=== PATIENT | female | born 1995 | race Caucasian/White ===

== ENCOUNTER 2017-05-09 22:27 | Emergency (ER) | payer SELFPAY ==
[~2017-05-09] VITALS: Ht 157.5 cm; Wt 134.3 kg
[2017-05-10] MEDS ORDERED: TRIM/SULFAMETH 160/800 (SEPTRA DS) TAB PO ONE (00:15)
--- NOTE | 2017-05-10 00:33 | ED General ---
General Chief Complaint: Skin/Wound Problems Stated Complaint: ARM WOUND Nursing Triage Note: pt reports warm, red, tender area to left upper arm x 2 days. Nursing Sepsis Screen: No Definite Risk (JIMI SANABRIA MEDICAL STUDENT) History of Present Illness Time Seen by Provider: 00:30 Initial Comments Pt is a 21 yo female with PMH of MRSA who presents to the ED via PV c/o an abscess on the inside of her L upper arm that started ~ 3 days ago. Pt states she has just used some warm compresses and has been "squeezing" it a few times a day. Hasn't taken any medication for pain. Pt has a hx of MRSA abscesses and states that she just moved here to [place] a few months ago and has been getting more of these since moving here. Denies any fevers, chills, or any other associated sx. (JIMI SANABRIA MEDICAL STUDENT) Allergies and Home Medications Allergies Coded Allergies: No Known Drug Allergies (Unverified , 05/09/17) Home Medications Sulfamethoxazole/Trimethoprim 1 Each Tablet, 1 EACH PO BID, #14 Prescribed by: CARRIE ANGELES on 05/10/17 0045 Constitutional: no symptoms reported, No chills, No diaphoresis EENTM: no symptoms reported, No ear pain, No mouth pain, No throat pain Respiratory: no symptoms reported, No cough, No dyspnea on exertion Cardiovascular: no symptoms reported, No chest pain, No palpitations Gastrointestinal: no symptoms reported, No abdominal pain, No constipation, No diarrhea Skin: change in color (redness), other (abscess on L arm) (JIMI SANABRIA MEDICAL STUDENT) All Other Systems Reviewed Negative Unless Noted: Yes (Negative excepted noted.) (JIMI SANABRIA MEDICAL STUDENT) Past Pbudwhu-Nluuqw-Yqogfa Hx Patient Social History Alcohol Use: Denies Use Recreational Drug Use: No Smoking Status: Never a Smoker Recent Foreign Travel: No Contact w/Someone Who Travel: No Recent Infectious Disease Expo: No Recent Hopitalizations: No Physical Abuse: No Sexual Abuse: No Mistreated: No Fear: No (JIMI SANABRIA MEDICAL STUDENT) Seasonal Allergies Seasonal Allergies: No (JIMI SANABRIA STUDENT) Surgeries History of Surgeries: Yes Surgeries: Adenoidectomy, Tonsillectomy (JIMI SANABRIA MEDICAL STUDENT) Respiratory History of Respiratory Disorde: Yes Respiratory Disorders: Asthma (JIMI SANABRIA MEDICAL STUDENT) Cardiovascular History of Cardiac Disorders: Yes Cardiac Disorders: Hypertension (JIMI SANABRIA MEDICAL STUDENT) Reproductive System Last Menstrual Period: Apr 19, 2017 (JIMI SANABRIA MEDICAL STUDENT) Psychosocial Suicide Risk Score: 0 (JIMI SANABRIA MEDICAL STUDENT) Physical Exam Vital Signs Vital Sign - Last 12Hours 05/09/17 22:34 Temp 97.8 Pulse 100 Resp 18 B/P (MAP) 160/102 (121) (CARRIE SHI MD) Vital Signs Capillary Refill : Less Than 3 Seconds (JIMI SANABRIA MEDICAL STUDENT) General Appearance: No Apparent Distress, WD/WN, Obese HEENT: PERRL/EOMI, Pharynx Normal Neck: Full Range of Motion, Normal Inspection Respiratory: Lungs Clear, Normal Breath Sounds, No Accessory Muscle Use Cardiovascular: Regular Rate, Rhythm, No Murmur Gastrointestinal: Normal Bowel Sounds, Non Tender, No Guarding, No Rebound Extremity: Normal Capillary Refill, Normal Range of Motion, Non Tender, No Calf Tenderness Neurologic/Psychiatric: Oriented x3, No Motor/Sensory Deficits Skin: Warm/Dry, Other (1x2cm abscess on L upper arm, medial surrounded by a 5cm diameter area of erythema) (JIMI SANABRIA MEDICAL STUDENT) Progress/Results/Core Measures Suspected Sepsis Recent Fever Within 48 Hours: No Infection Criteria Present: Suspected New Infection New/Unexplained Altered Menta: No Sepsis Screen: No Definite Risk Sepsis Diagnosis: SIRS Temperature:97.8 Pulse: 100 Respiratory Rate: 18 Blood Pressure 160 /102 Mean: 121 (JIMI SANABRIA MEDICAL STUDENT) Results/Orders My Orders Orders - CARRIE SHI MD Sulfamethoxazole/Trimet Ds Tab (Bactrim (05/10/17 00:15) (CARRIE SHI MD) Vital Signs/I&O Vital Sign - Last 12Hours 05/09/17 22:34 Temp 97.8 Pulse 100 Resp 18 B/P (MAP) 160/102 (121) (CARRIE SHI MD) Vital Signs/I&O Capillary Refill : Less Than 3 Seconds (JIMI SANABRIA MEDICAL STUDENT) Blood Pressure Mean: 121 Departure Impression Impression: Primary Impression: Cellulitis and abscess of upper arm and forearm Additional Impression: Encounter for incision and drainage procedure Disposition: 01 HOME, SELF-CARE Condition: Improved Departure-Patient Inst. Decision time for Depature: 00:44 (CARRIE SHI MD) Referrals: NO,LOCAL PHYSICIAN (PCP) Primary Care Physician Patient Instructions: Abscess Incision and Drainage (DC), Cellulitis (Skin Infection), Adult (DC) Add. Discharge Instructions: Complete your antibiotics as prescribed. Continue to use warm soaks in the bathtub or warm compresses multiple times a day to encourage draining. Keep covered as long as the wound is draining. Return to care if symptoms worsen. To prevent future abscesses, consider bathing once or twice a week with chlorhexidine soap (Hibiclens). This can be found [id number] at pharmacies or [facility]. All discharge instructions reviewed with patient and/or family. Voiced understanding. Scripts Sulfamethoxazole/Trimethoprim (Bactrim Ds Tablet) 1 Each Tablet 1 EACH PO BID, #14 TAB Prov: CARRIE SHI MD 05/10/17 JIMI SANABRIA MEDICAL STUDENT May 10, 2017 00:33 CARRIE SHI MD May 10, 2017 00:46
[2017-05-10] MEDS ORDERED: SULF1TAB35 PO (00:45)
[2017-05-10 00:49] VITALS: BP 148/102
== END 2017-05-10 00:49 | disposition home or self-care (01) ==
LOC: ER 22:29
DX: L03.114 Cellulitis of left upper limb (principal); L02.414 Cutaneous abscess of left upper limb; J45.909 Unspecified asthma, uncomplicated; I10 Essential (primary) hypertension; Z90.89 Acquired absence of other organs; Z86.14 Personal history of Methicillin resistant Staphylococcus aureus infection

== ENCOUNTER 2017-07-13 07:57 | Emergency (ER) | payer SELFPAY ==
[~2017-07-13] VITALS: Ht 157.5 cm; Wt 134.3 kg
[~2017-07-13 07:57] MED LIST: SULF1TAB35 PO
[2017-07-13] MEDS ORDERED: LIDOCAINE 2% VISCOUS 15 ML UDC PO ONE (08:15)
[2017-07-13] MEDS ORDERED: ANTACID SUSP 30 ML UDC (MYLANTA) PO ONE (08:15)
--- NOTE | 2017-07-13 08:26 | ED General ---
General Chief Complaint: Psych/Social Disorder Stated Complaint: CHEST DISCOMFORT/COUGH Source of Information: Patient Exam Limitations: No Limitations History of Present Illness Date Seen by Provider: Jul 13, 2017 Time Seen by Provider: 08:05 Initial Comments Here with report of central chest discomfort or epigastric discomfort. This woke her up this morning. She felt short of breath and had burning pain. She is not sure what this is. She is very anxious with this. She had an episode like this previously long time ago but has not had any since. They told her it was a panic attack. She reports sleeping on the couch. States the previous episode occurred where she was sleeping as well. Currently feeling a little better. Reports that she had a recent trip to [place] and back a week ago. Timing/Duration: 1/2 Hour Severity: Moderate Associated Systoms: Chest Pain, No Diaphoresis, No Fever/Chills, No Nausea/ Vomiting, Shortness of Air, No Weakness Allergies and Home Medications Allergies Coded Allergies: No Known Drug Allergies (Unverified , 05/09/17) Home Medications Sulfamethoxazole/Trimethoprim 1 Each Tablet, 1 EACH PO BID Prescribed by: CARRIE ANGELES on 05/10/17 0045 Patient Home Medication List Home Medication List Reviewed: Yes Constitutional: see HPI, No chills, No fever EENTM: no symptoms reported Respiratory: No cough, short of breath, No wheezing Cardiovascular: No chest pain, No edema Gastrointestinal: abdominal pain (epigastric), No nausea, No vomiting Genitourinary: no symptoms reported, No dysuria Musculoskeletal: no symptoms reported Skin: no symptoms reported Psychiatric/Neurological: Anxiety, Denies Emotional Problems Hematologic/Lymphatic: No Symptoms Reported All Other Systems Reviewed Negative Unless Noted: Yes Past Jxmuzsu-Udgwri-Grmucm Hx Patient Social History Alcohol Use: Denies Use Recreational Drug Use: No Smoking Status: Never a Smoker 2nd Hand Smoke Exposure: No Recent Foreign Travel: No Contact w/Someone Who Travel: No Recent Hopitalizations: No Seasonal Allergies Seasonal Allergies: No Surgeries History of Surgeries: Yes Surgeries: Adenoidectomy, Tonsillectomy Respiratory History of Respiratory Disorde: Yes Respiratory Disorders: Asthma Cardiovascular History of Cardiac Disorders: Yes Cardiac Disorders: Hypertension Genitourinary History of Genitourinary Disor: No Gastrointestinal History of Gastrointestinal Di: No Musculoskeletal History of Musculoskeletal Dis: No Psychosocial Behavioral Health Disorders: Anxiety, Depression Reviewed Nursing Assessment Reviewed/Agree w Nursing PMH: Yes Family Medical History Significant Family History: No Pertinent Family Hx Physical Exam Vital Signs Vital Signs - First Documented 07/13/17 08:11 Temp 97.5 Pulse 85 Resp 20 B/P (MAP) 178/114 (135) Pulse Ox 100 O2 Delivery Room Air Capillary Refill : General Appearance: No Apparent Distress, WD/WN, Obese HEENT: PERRL/EOMI, Pharynx Normal Neck: Non Tender, Supple Respiratory: Lungs Clear, Normal Breath Sounds Cardiovascular: Regular Rate, Rhythm, No Murmur Gastrointestinal: Non Tender, Soft Back: Normal Inspection, No CVA Tenderness, No Vertebral Tenderness Extremity: Normal Range of Motion, Non Tender Neurologic/Psychiatric: Alert, Oriented x3 Skin: Normal Color, Warm/Dry Progress/Results/Core Measures Suspected Sepsis SIRS Temperature: Pulse: Respiratory Rate: Laboratory Tests 07/13/17 08:53: White Blood Count 10.8 Blood Pressure / Mean: Laboratory Tests 07/13/17 08:53: Creatinine 0.66, Platelet Count 238, Total Bilirubin 0.8 Results/Orders Lab Results Laboratory Tests Test 07/13/17 08:53 Range/Units White Blood Count 10.8 4.3-11.0 10^3/uL Red Blood Count 4.88 4.35-5.85 10^6/uL Hemoglobin 13.5 11.5-16.0 G/DL Hematocrit 40 35-52 % Mean Corpuscular Volume 82 80-99 FL Mean Corpuscular Hemoglobin 28 25-34 PG Mean Corpuscular Hemoglobin Concent 34 32-36 G/DL Red Cell Distribution Width 13.5 10.0-14.5 % Platelet Count 238 130-400 10^3/uL Mean Platelet Volume 10.3 7.4-10.4 FL Neutrophils (%) (Auto) 58 42-75 % Lymphocytes (%) (Auto) 28 12-44 % Monocytes (%) (Auto) 9 0-12 % Eosinophils (%) (Auto) 4 0-10 % Basophils (%) (Auto) 1 0-10 % Neutrophils # (Auto) 6.3 1.8-7.8 X 10^3 Lymphocytes # (Auto) 3.1 1.0-4.0 X 10^3 Monocytes # (Auto) 1.0 0.0-1.0 X 10^3 Eosinophils # (Auto) 0.4 H 0.0-0.3 10^3/uL Basophils # (Auto) 0.1 0.0-0.1 10^3/uL D-Dimer 0.42 0.00-0.49 UG/ML Sodium Level 137 135-145 MMOL/L Potassium Level 4.4 3.6-5.0 MMOL/L Chloride Level 105 98-107 MMOL/L Carbon Dioxide Level 21 21-32 MMOL/L Anion Gap 11 5-14 MMOL/L Blood Urea Nitrogen 19 H 7-18 MG/DL Creatinine 0.66 0.60-1.30 MG/DL Estimat Glomerular Filtration Rate > 60 BUN/Creatinine Ratio 29 Glucose Level 103 70-105 MG/DL Calcium Level 9.5 8.5-10.1 MG/DL Total Bilirubin 0.8 0.1-1.0 MG/DL Aspartate Amino Transf (AST/SGOT) 39 H 5-34 U/L Alanine Aminotransferase (ALT/SGPT) 53 0-55 U/L Alkaline Phosphatase 61 40-136 U/L Total Protein 7.7 6.4-8.2 GM/DL Albumin 4.2 3.2-4.5 GM/DL My Orders Orders - LAYNE MACIAS MD Lidocaine 2% Viscous 15 Ml (Xylocaine Vi (07/13/17 08:15) Antacid Suspension (Mylanta Suspension (07/13/17 08:15) Urine Bedside (07/13/17 08:10) Ekg Tracing (07/13/17 08:10) Chest Pa/Lat (2 View) (07/13/17 08:10) Cbc With Automated Diff (07/13/17 08:10) Comprehensive Metabolic Panel (07/13/17 08:10) Fibrin Degradation Products (07/13/17 08:10) Medications Given in ED Current Medications Medications Dose Ordered Sig/Fitz Route Start Time Stop Time Status Last Admin Dose Admin Al Hydrox/Mg Hydrox/Simethicone 30 ml ONCE ONCE PO 07/13/17 08:15 07/13/17 08:16 DC 07/13/17 08:40 30 ML Lidocaine HCl 15 ml ONCE ONCE PO 07/13/17 08:15 07/13/17 08:16 07/13/17 08:40 15 ML Vital Signs/I&O Vital Sign - Last 12Hours 07/13/17 08:11 Temp 97.5 Pulse 85 Resp 20 B/P (MAP) 178/114 (135) Pulse Ox 100 O2 Delivery Room Air Capillary Refill : Progress Note : Progress Note Seen and evaluated. EKG, chest x-ray and labs ordered. UCG ordered. GI cocktail ordered. Monitor patient.. Cardiac echo. 0955: No acute findings on labs or chest x-ray. Discharged home with return precautions. Patient verbalized understanding instructions and agreement with plan. Pepcid 20 mg IV given prior to discharge for some mild reflux symptoms that are starting to return. ECG Initial ECG Impression Date: Jul 13, 2017 Initial ECG Impression Time: 08:21 Initial ECG Rate: 84 Initial ECG Rhythm: Normal Sinus Initial ECG Impression: Normal Initial ECG Comparisson: No Previous ECG Available Comment Sinus rhythm with inferior Q waves. No evidence of ST elevation [place]. No previous available for comparison. Interpreted by me. Diagnostic Imaging Diagonstic Imaging: Xray Plain Films/CT/US/NM/MRI: chest Comments VIA [facility]. [place], [place] NAME: STAS LEES [facility] REC#: [id number] PT STATUS: REG ER : 1995 PHYSICIAN: LAYNE MACIAS MD ADMIT DATE: 07/13/17/ER Draft Date of Exam:07/13/17 CHEST PA/LAT (2 VIEW) INDICATION: Chest pain. FINDINGS: The lungs are clear. The heart size and vascularity are within normal limits. There is no effusion or pneumothorax. IMPRESSION: No acute appearing abnormality. Dictated on workstation # [id number] Dict: 07/13/17 0942 Trans: 07/13/17 0952 [facility] [id number] Interpreted by: AGUSTINA BIRD Electronically signed by: Departure Impression Impression: Primary Impression: Epigastric pain Disposition: 01 HOME, SELF-CARE Condition: Improved Departure-Patient Inst. Decision time for Depature: 10:02 Referrals: NO,LOCAL PHYSICIAN (PCP/Family) Primary Care Physician Patient Instructions: Acid Reflux (Gastroesophageal Reflux Disease) in Adults, Acute Abdomen (Belly Pain), Adult (DC) Add. Discharge Instructions: All discharge instructions reviewed with patient and/or family. Voiced understanding. You may take [id number]-cun-[id number] stomach medicine such as omeprazole. Take this daily for 2 weeks and you may repeat this 2 for an additional 4 weeks of treatment as needed. You may also take Pepcid or the generic famotidine 20 mg daily as needed for reflux symptoms. You were noted to have high blood pressure here. It is important that you have this rechecked and evaluated further as you may need treatment for this. You should obtain a local doctor and follow-up for recheck and further evaluation. You also need recheck related to your stomach problems as you may need further referral to a surgeon for upper endoscopy (scope). Clear liquid or light diet for the next 24 hours and then advance as tolerated. You should avoid spicy or heavy foods. Return for worse pain, fever, vomiting, weakness, breathing problems or other concerns as needed. Work/School Note: Local [employer] Listing LAYNE MACIAS MD Jul 13, 2017 08:26
[2017-07-13 09:01] LABS: BASOPHILS # (AUTO) 0.1 10^3/uL (0.0-0.1); BASOPHILS % (AUTO) 1 % (0-10); EOSINOPHILS # (AUTO) 0.4 10^3/uL (0.0-0.3); EOSINOPHILS % (AUTO) 4 % (0-10); HEMATOCRIT 40 % (35-52); HEMOGLOBIN 13.5 G/DL (11.5-16.0); LYMPHOCYTES # (AUTO) 3.1 X 10^3 (1.0-4.0); LYMPHOCYTES % (AUTO) 28 % (12-44); MEAN CORPUSCULAR HEMOGLOBIN 28 PG (25-34); MEAN CORPUSCULAR HGB CONC 34 G/DL (32-36); MEAN CORPUSCULAR VOLUME 82 FL (80-99); MEAN PLATELET VOLUME 10.3 FL (7.4-10.4); MONOCYTES % (AUTO) 9 % (0-12); NEUTROPHILS # (AUTO) 6.3 X 10^3 (1.8-7.8); NEUTROPHILS % (AUTO) 58 % (42-75); PLATELET COUNT 238 10^3/uL (130-400); RED BLOOD COUNT 4.88 10^6/uL (4.35-5.85); RED CELL DISTRIBUTION WIDTH 13.5 % (10.0-14.5); WHITE BLOOD COUNT 10.8 10^3/uL (4.3-11.0)
[2017-07-13 09:24] LABS: ALANINE AMINOTRANSFERASE 53 U/L (0-55); ALBUMIN 4.2 GM/DL (3.2-4.5); ALKALINE PHOSPHATASE 61 U/L (40-136); BILIRUBIN,TOTAL 0.8 MG/DL (0.1-1.0); BUN/CREATININE RATIO 29; CALCIUM 9.5 MG/DL (8.5-10.1); CARBON DIOXIDE 21 MMOL/L (21-32); CHLORIDE 105 MMOL/L (98-107); CREATININE SERUM 0.66 MG/DL (0.60-1.30); GFR ESTIMATED > 60; GLUCOSE 103 MG/DL (70-105); POTASSIUM 4.4 MMOL/L (3.6-5.0); SODIUM 137 MMOL/L (135-145); TOTAL PROTEIN 7.7 GM/DL (6.4-8.2)
--- NOTE | 2017-07-13 09:53 | Diagnostic Imaging Report ---
INDICATION: Chest pain. FINDINGS: The lungs are clear. The heart size and vascularity are within normal limits. There is no effusion or pneumothorax. IMPRESSION: No acute appearing abnormality. Dictated by: Dictated on workstation # [id number]
[2017-07-13] MEDS ORDERED: FAMOTIDINE 20 MG (PEPCID) TABLET PO STA (10:01)
[2017-07-13 10:11] VITALS: BP 137/99
== END 2017-07-13 10:18 | disposition home or self-care (01) ==
LOC: EDUNIT# 07:57 → ER 07:59
DX: R10.13 Epigastric pain (principal); F41.9 Anxiety disorder, unspecified; F32.9 Major depressive disorder, single episode, unspecified; I10 Essential (primary) hypertension; Z90.89 Acquired absence of other organs
CPT/HCPCS: 36415; 71046; 80053; 84703; 85025; 85379; 93005